=== PATIENT | male | born 1980 | race Caucasian/White ===

== ENCOUNTER → 2016-10-26 | Day surgery (SDC) | payer BC ==
[2016-09-25 16:06] VITALS: Ht 175.3 cm; Wt 88.6 kg
[~2016-10-26] VITALS: Ht 175.3 cm; Wt 88.6 kg
[~2016-10-26] MED LIST: ATROPINE SULFATE 0.1 MG/ML 5ML SYR IV PRN; BUPIVACAINE 0.5 % 5 MG/1 ML PF 10ML VIAL ONE; BUPIVACAINE/EPINEPHRINE 0.5% MPF 1:200,000 10 ML VIAL ONE; BUPRTAB51 PO; CEFAZOLIN 2000 MG/60 ML D5W IV SCH; DEXAMETHASONE SOD INJ 4 MG/ML VIAL ONE; EpHEDrine SULFATE INJ 50 MG/ML AMP IV PRN; FENTANYL CITRATE INJ 50 MCG/1 ML 2 ML VIAL IV PRN; FENTANYL CITRATE INJ 50 MCG/1 ML 2 ML VIAL ONE; FLUMAZENIL 0.1 MG/1 ML 10 ML VIAL IV PRN; HYDR-5688 PO; HYDROCODONE/ACETAMOPHEN 5/325MG TAB PO PRN; LACTATED RINGER'S 1000ML 1,000 ML IV SCH; LIDOCAINE HCL 2% 2 ML VIAL (20MG/ML) ONE; MIDAZOLAM HCL 1 MG/ML 2ML VIAL ONE; NALOXONE HCL 0.4 MG/1 ML VIAL/CARP IV PRN; OMEP40CA41 PO; ONDANSETRON INJ 2 MG/ML 2 ML VIAL IV PRN; ONDANSETRON INJ 2 MG/ML 2 ML VIAL ONE; PROPOFOL IV EMULSION 10 MG/ML 20 ML VIAL IV ONE; SODIUM CHLORIDE 0.9% 1000ML 1,000 ML IV SCH; TRC145 PO
--- NOTE | 2016-10-26 06:52 | History & Physical Bridge Note ---
H&P Re-Evaluation Bridge Note: I have examined the patient, reviewed the History & Physical and in the interval since the performance of the History & Physical I have noted the following changes of clinical significance: No changes noted
--- NOTE | 2016-10-26 07:43 | [facility] Operative Report ---
Operative Report Operative Date Oct 26, 2016. Pre-Operative Diagnosis Sterilization Umbilical Hernia Post-Operative Diagnosis same as preop Procedure(s) Performed Vasectomy - Dr. Blanc Umbilical Hernia Open Repair - Dr. Vazquez Surgeon Dr. Blanc/Dr. Vazquez Teacher [employer] Surgeon(s) RODRIGUE Lu Estimated Blood Loss 0cc for Vasectomy Findings Healthy appearing vasa b/l Specimens A: Portion of Vas Deferens, right and left Anesthesia gen Complication(s) None Disposition Recovery Room / PACU (stable) Indications desired sterilization; umbilical hernia Description of Procedure Vasectomy - Chan Fernández was identified in the preoperative holding area, appropriate informed consent was reviewed and completed and he was transported to the operative suite. Following administration of general anesthesia and appropriate sterile prep and drape, I anesthesized the skin of the scrotal midline with .5% marcaine. A 5mm incision was then made with a 15 blade before dissection through the cord structures of the left testis to identify and isolate the left vas. After grasping the vas in a vas clamp, it was elevated above the incision and skeletonized. After exposing a 3cm length of vas, a micro clip was placed on the proximal and distal aspects followed by suture ligation with a 3-0 chromic. The intervening section of vas was excised and passed off of the table as a specimen labeled left vas deferens. I cauterized the lumen of the vas (proximally and distally) using a needlepoint cautery. The transected vas was then repositioned in its normal position within the left hemiscrotum. I then utilized the same incision to access the right vas. I dissected through the cord structures of the left testis to identify and isolate the right vas. After grasping the vas in a vas clamp, it was elevated above the incision and skeletonized. After exposing a 3cm length of vas, a micro clip was placed on the proximal and distal aspects followed by suture ligation with a 3-0 chromic. The intervening section of vas was excised and passed off of the table as a specimen labeled right vas deferens. I cauterized the lumen of the vas ( proximally and distally) using a needlepoint cautery. The transected vas was then repositioned in its normal position within the right hemiscrotum. Skin incision was closed with 2 vertical mattress sutures of 3-0 chromic. The patient was stable to move forward with his umbilical hernia repair. I attest to the content of the Intraoperative Record and any orders documented therein. Any exceptions are noted below.
--- NOTE | 2016-10-26 08:17 | [facility] Operative Report ---
Operative Report Operative Date Oct 26, 2016. Pre-Operative Diagnosis Sterilization Umbilical Hernia Post-Operative Diagnosis same as preop Procedure(s) Performed Vasectomy - Dr. Blanc Umbilical Hernia Open Repair - Dr. Vazquez Surgeon Dr. Blanc/Dr. Vazquez Associate Web Developer Surgeon(s) RODRIGUE Lu(w/Dr. Vazquez) Estimated Blood Loss 0cc for Vasectomy Findings 1 cm umbilical hernia defect with fat incarceration Specimens A: Portion of Right Vas Deferens B: Portion of Left Vas Deferens Anesthesia gen Complication(s) None Disposition Recovery Room / PACU (stable) Description of Procedure Please see Dr. Blanc's dictation regarding the vasectomy. This was a combined procedure which Dr. Blanc went first. The patient had been intubated and sterilely prepped and draped and was status post vasectomy. I began with an infraumbilical incision with 15 blade scalpel. I carried this down through the soft tissue to the fascia using electrocautery. Once down to the fascia I used a Mattie clamp to come around the superior aspect of the umbilicus. Once I did this I detached the umbilical stalk from the fascia revealing an approximate 1 cm hernia defect with fat incarceration. I excised some the fat with electrocautery and discarded it. I was able to dunk the remainder back into the abdominal cavity. Because of the small size the defect I opted not to use mesh. I used 0 Ethibond in interrupted [id number] fashion to primarily close the defect. After this I thoroughly irrigated the wound ...there was adequate hemostasis. There was a very small buttonhole in the skin after detaching the stalk. I closed this using 2-0 Vicryl in simple interrupted fashion. I then reattach the umbilical stalk to the fascia using 0 Vicryl. I then irrigated the wound a final time and closed in 2 layers using 3- 0 Vicryl for the deeper layers and 4-0 Monocryl for the skin. Marcaine was injected around for postoperative analgesia and skin glue used as a dressing. The patient was awaken extubated and transferred recovery in stable condition I attest to the content of the Intraoperative Record and any orders documented therein. Any exceptions are noted below.
--- NOTE | 2016-10-26 08:19 | Discharge Instructions-SurgCtr ---
Discharge Instructions Date of Service Oct 26, 2016. Visit Reason for Visit: Sterilization Discharge Discharge Diagnosis / Problem: Sterilization Discharge Goals Goal(s): Decrease discomfort, Improve function Activity Recommendations Activity Limitations: as noted below Lifting Limitations: no more than 10 pounds Exercise/Sports Limitations: until after follow-up appointment May Resume Sexual Activity: after follow-up appointment Shower/Bathe: tomorrow Driving or Machine Use: resume 1 day after discharge Anesthesia . Post Anesthesia Instructions: If you have had General Anesthesia or IV Sedation: * Do not drive today. * Resume driving when surgeon permits. * Do not make important decisions or sign legal documents today. * Call surgeon for: 1. Temperature elevations greater than 101 degrees F. 2. Uncontrollable pain. 3. Excessive bleeding. 4. Persistent nausea and vomiting. 5. Medication intolerance (nausea, vomiting or rash). * For nausea and vomiting use only clear liquids such as: tea, soda, bouillon until nausea subsides, then gradually increase diet as tolerated. * If you have any concerns or questions, call your surgeon's office. If physician is unavailable and it is an emergency, call 911 or go to the nearest emergency room. . Instructions / Follow-Up Instructions / Follow-Up Please follow-up with Dr. Vazquez in the office in 1-2 weeks. Please call the office at [phone] to make an appointment if you do not have one already. Please call the office with any questions or concerns. Please follow-up with as directed. Diet Recommendations Home Diet: no limitations, resume previous diet Procedures Procedures Performed: Vasectomy - Dr. Blanc Umbilical Hernia Open Repair - Dr. Vazquez Pending Studies Studies pending at discharge: yes List of pending studies: Pathology report. Medical Emergencies . Who to Call and When: Medical Emergencies: If at any time you feel your situation is an emergency, please call 911 immediately. . Non-Emergent Contact Non-Emergency issues call your: Primary Care Provider, Surgeon Call Non-Emergent contact if: temperature is above 101.5, your pain is not controlled, wound has increased drainage, wound has increased redness . . "Provider Documentation" section prepared by Pratima Berry. . [place] Drug Monitoring Program Search Results: patient reviewed within database, no issues identified
[2016-10-26 09:16] VITALS: TEMP 36.6
--- NOTE | 2016-10-26 09:22 | Anesthesia Progress Nt - [facility] ---
Anesthesia Post Op Note Date & Time Oct 26, 2016 at 09:21 Vital Signs Pain Intensity: 2 Vital Signs Past 12 Hours Date Time Temp Pulse Resp B/P (MAP) Pulse Ox O2 Delivery O2 Flow Rate FiO2 10/26/16 09:06 36.6 76 20 122/78 98 Room Air 10/26/16 09:01 120/76 10/26/16 08:59 76 10 10/26/16 08:59 78 10 97 10/26/16 08:56 120/82 10/26/16 08:54 77 20 10/26/16 08:54 75 20 98 10/26/16 08:51 123/84 10/26/16 08:49 79 21 10/26/16 08:49 80 21 98 10/26/16 08:46 126/75 10/26/16 08:44 78 0 10/26/16 08:44 77 0 100 10/26/16 08:41 109/79 10/26/16 08:39 73 4 99 10/26/16 08:39 73 4 10/26/16 08:36 126/70 10/26/16 08:34 74 9 99 10/26/16 08:34 74 9 10/26/16 08:31 113/73 10/26/16 08:29 73 8 99 10/26/16 08:29 72 8 10/26/16 08:26 124/69 10/26/16 08:24 75 9 10/26/16 08:24 74 9 100 10/26/16 08:21 118/72 10/26/16 08:19 78 9 10/26/16 08:19 79 9 100 10/26/16 08:16 112/78 10/26/16 08:15 131/74 10/26/16 08:14 89 98 10/26/16 08:14 36.5 87 16 131/77 98 Mask 6 10/26/16 08:14 89 10/26/16 06:31 36.6 76 18 134/93 (107) 96 Room Air Notes Mental Status: alert / awake / arousable, participated in evaluation Pt Amnestic to Procedure: Yes Nausea / Vomiting: adequately controlled Pain: adequately controlled Airway Patency, RR, SpO2: stable & adequate BP & HR: stable & adequate Hydration State: stable & adequate Anesthetic Complications: no major complications apparent
[2016-10-26 09:54] VITALS: BP 123/78; PULSE 74; O2SAT 100
== END | disposition home or self-care (01) ==
LOC: X.SURG 06:19
PROVIDERS: ATTEND Urology
DX: Z30.2 Encounter for sterilization (principal); K42.0 Umbilical hernia with obstruction, without gangrene; E78.5 Hyperlipidemia, unspecified